=== PATIENT | female | born 1985 | race Caucasian/White ===

== ENCOUNTER 2017-09-06 05:54 | Inpatient (IN) | payer OTHER ==
[2017-09-06 06:25] VITALS: BMI 31.7
[2017-09-06 06:39] LABS: Mean Corpuscular HGB CONC 35.3 g/dL (32.0-36.0); Mean Corpuscular Hemoglobin 32.8 pg (27.0-31.0); Mean Corpuscular Volume 92.8 fl (81.0-99.0); Mean Platelet Volume 8.4 fL (7.4-10.4); Platelet Count 166 thou/uL (130-400); RBC Distribution Width 12.1 % (11.5-14.5); Red Blood Cell (RBC) Count 4.28 mill/uL (4.20-5.40); White Blood Cell (WBC) Count 9.4 thou/uL (4.8-10.8)
[2017-09-06] MEDS ORDERED: Promethazine HCl 25 MG/ML VIAL IM PRN (06:41)
[2017-09-06] MEDS ORDERED: Ondansetron HCl/PF 4 MG/2 ML Vial IVP PRN ×2 (06:41→10:37)
[2017-09-06] MEDS ORDERED: LR / Pitocin 40 units/1000 ml 1,000 ML ONE (06:42)
[2017-09-06] MEDS ORDERED: Lidocaine 1% (PF) 30 ML VIAL ONE (06:42)
[2017-09-06] MEDS ORDERED: LR 500 ML/Oxytocin 10 units 500 ML IVPB SCH (06:45)
[2017-09-06] MEDS ORDERED: Bupivacaine 0.5% 20 ML, Fentanyl 400 MCG in Sodium Chloride 0.9% 72 ML EPIDURAL SCH (06:45)
[2017-09-06] MEDS ORDERED: Lactated Ringer's 1,000 ML IV SCH (06:45)
[2017-09-06] MEDS ORDERED: LR / Pitocin 40 units/1000 ml 1,000 ML IV SCH ×2 (06:45→10:37)
[2017-09-06] MEDS ORDERED: Lidocaine 1% (PF) 30 ML VIAL IJ SCH (06:45)
[2017-09-06] MEDS ORDERED: DISCONTINUE ALL PREVIOUS NARCOTICS FS SCH (06:45)
[2017-09-06 07:09] LABS: Actual Bicarbonate (HCO3a) 23.7 mEq/L (22-26)
[2017-09-06 07:10] LABS: Base Excess (BEa) -2.7 mEq/L (0 (+/-) 2.5)
--- NOTE | 2017-09-06 07:19 | PDOC.OPDEL ---
OB Operative/Delivery Note Delivery Dr/Surgeon: Luke Assist: None Pre-Delivery Diagnosis: active labor, other (Variable decels noted just prior to delivery. Cord gas sent for precipitous delivery.) Procedure/Post Delivery Dx: spontaneous vaginal delivery Anesthesia: local - Findings A Sex: male - 1 min: 9 - 5 min: 9 - Additional Findings/Plan Placenta delivered: spontaneous Repaired Obstetrical Laceration: 2nd degree (Repaired with 2-0 vicryl in the usual manner, under local anesthesia (10ml).) Estimated blood loss: 300 Compilations/Other Findings: No complications noted. No NC . Baby was vigorous. Male. 3VC, placenta delivery by [place] mechanism. Apgars 9 and 9 Procedure: I was called STAT to [facility] [address] Schmid was enroute to the unit. I arrived at approx 0649 and the patient progressed to at 0654,. No complications were noted. A second degree lac in the midline of the perineum was found and repaired. All counts were correct. No retained vaginal items encountered.
[2017-09-06 07:23] LABS: HBSAg Index 0.15 S/CO (0-0.99); HIV (1/2) Antibody/Antigen Non-Reactive (NonReactive); HIV 1/2 INDEX 0.13 S/CO (<1.00); Hep B Surf Ag Non-Reactive S/CO (NonReactive); Syphilis Antibody Nonreactive (Nonreactive); Syphilis Antibody Index 0.02 S/CO (<1.00 Non-Reactive)
[2017-09-06] MEDS ORDERED: Adacel (T-DAP) 0.5 ML VIAL IM ONE (10:37)
[2017-09-06] MEDS ORDERED: Prenatal Vitamin 1 TAB PO SCH ×2 (10:37→11:00)
[2017-09-06] MEDS ORDERED: Lanolin Ointment 7 GM TUBE TOP PRN (10:37)
[2017-09-06] MEDS ORDERED: Milk Of Magnesia 30 ML UDCUP PO PRN (10:37)
[2017-09-06] MEDS ORDERED: Preparation H Ointment 28 GM TUBE PR PRN (10:37)
[2017-09-06] MEDS ORDERED: Bisacodyl 10 MG SUPP PR PRN (10:37)
[2017-09-06] MEDS ORDERED: diphenhydrAMINE 25 MG CAP PO PRN (10:37)
[2017-09-06] MEDS ORDERED: HYDROcodone/Acetaminophen 5/325 mg Tablet PO PRN ×2 (10:37)
[2017-09-06] MEDS ORDERED: Zolpidem Tartrate 5 MG TAB PO PRN (10:37)
[2017-09-06] MEDS ORDERED: Ferrous Sulfate 325 MG TAB PO SCH (10:49)
[2017-09-06] MEDS ORDERED: Docusate Calcium (SURFAK) 240 MG CAP PO SCH (11:00)
[2017-09-06] MEDS: Ibuprofen 800 MG TAB PO SCH ×2 (13:46→21:29)
[2017-09-06] MEDS: Ferrous Sulfate 325 MG TAB PO SCH (17:05)
[2017-09-06] MEDS: Docusate Calcium (SURFAK) 240 MG CAP PO SCH (21:29)
[2017-09-07] MEDS: Ibuprofen 800 MG TAB PO SCH (06:13)
[2017-09-07 07:52] VITALS: BP 111/67; TEMP 98.1
--- NOTE | 2017-09-07 08:30 | PDOC.PP ---
Post Progress Note Post Day #: 1 PO intake tolerated: yes Flatus: yes Ambulation: yes Vital Signs (12 hours) Temp Pulse Resp BP 09/07/17 07:51 98.1 F 58 L 18 111/67 09/07/17 07:40 98.1 F 58 L 18 09/07/17 04:43 98.4 F 58 L 16 98/57 L 09/07/17 00:45 97.8 F 63 16 106/61 Weight Weight 185 lb - Physical Examination General: NAD Cardiovascular: no m/r/g, RRR Respiratory: clear to auscultation bilaterally, non-labored breathing Abdominal: + bowel sounds, lochia, no distention Extremities: negative homans (B) Neurological: no gross focal deficits Psychiatric: A&Ox3, normal affect Result Diagrams: 09/06/17 06:28 Additional Labs: Post Labs Hep Bs Antigen Non-Reactive S/CO (NonReactive) 09/06/17 06:28 (1) Precipitous delivery Code(s): O62.3 - PRECIPITATE LABOR Status: Acute Comment: barbara pierce . dc with baby
[2017-09-07] MEDS: Docusate Calcium (SURFAK) 240 MG CAP PO SCH (08:37)
[2017-09-07] MEDS: Ferrous Sulfate 325 MG TAB PO SCH (08:37)
[2017-09-07] MEDS ORDERED: Prenatal Vitamin 1 TAB PO SCH (09:00)
== END 2017-09-07 12:40 | disposition home or self-care (01) | DRG 775 ==
LOC: L&D/OP 05:54 → L&D 06:21 → 3SW 10:02
PROVIDERS: ADMIT Obstetrics & Gynecology; ATTEND Obstetrics & Gynecology
PROC: 10E0XZZ Delivery of Products of Conception, External Approach (ICD-10-PCS; principal; 2017-09-06)
PROC: 0KQM0ZZ Repair Perineum Muscle, Open Approach (ICD-10-PCS; 2017-09-06)
DX: O62.3 Precipitate labor (principal); O70.1 Second degree perineal laceration during delivery; O76 Abnormality in fetal heart rate and rhythm complicating labor and delivery; Z37.0 Single live birth; Z3A.39 39 weeks gestation of pregnancy
CPT/HCPCS: 36415; 82805; 85027; 86780; 87340; 87389; 90715; 99285; J2001; J3010; J3490; J7050